=== PATIENT | female | born 1950 | race Caucasian/White ===

== ENCOUNTER → 2017-06-18 | Outpatient (CLI) | payer MEDICARE, OTHER ==
[~2017-06-18] MED LIST: ACIPHEX20 MG PO; ASPIRIN 81M81 MG/TA2 PO; CRESTOR5 MG PO; IMITREX 25MG TA25 MG PO; L-LYSINE1000 MG PO; MULTIPLE VITAMI1 CAP PO; NATURAL E400 IU PO; NATURAL MAGNES200 MG; OMEGA 31000 MG; OSTEO-BI-FLEX 21 TAB PO; PRINZIDE 12.5 M1 TAB; VITAMIN D31000 IU PO; ZYRTEC5 MG PO; [UNRECOGNIZED DRUG - OTHER] TD
== END ==
LOC: COL.RAD 08:09
DX: K21.9 Gastro-esophageal reflux disease without esophagitis (principal); K44.9 Diaphragmatic hernia without obstruction or gangrene

== ENCOUNTER → 2017-09-19 | Outpatient (CLI) | payer MEDICARE, OTHER | LOC: MC.RAD 11:37 | DX: Z12.31 Encounter for screening mammogram for malignant neoplasm of breast (principal) ==

== ENCOUNTER → 2018-06-13 | Outpatient (CLI) | payer MEDICARE, OTHER | LOC: COL.RAD 10:49 | DX: I73.9 Peripheral vascular disease, unspecified (principal) | CPT/HCPCS: Q9967 ==

== ENCOUNTER → 2018-09-20 | Outpatient (CLI) | payer MEDICARE, OTHER | LOC: MC.RAD 10:51 | DX: Z12.31 Encounter for screening mammogram for malignant neoplasm of breast (principal); C50.919 Malignant neoplasm of unspecified site of unspecified female breast; R92.1 Mammographic calcification found on diagnostic imaging of breast; Z98.82 Breast implant status; Z98.890 Other specified postprocedural states ==

== ENCOUNTER → 2018-09-25 | Outpatient (CLI) | payer MEDICARE, OTHER | LOC: MC.RAD 14:14 | DX: Z85.3 Personal history of malignant neoplasm of breast (principal) ==

== ENCOUNTER → 2019-10-02 | Outpatient (CLI) | payer MEDICARE, OTHER | LOC: MC.RAD 13:14 | DX: Z12.31 Encounter for screening mammogram for malignant neoplasm of breast (principal); Z98.82 Breast implant status; Z98.890 Other specified postprocedural states; Z92.3 Personal history of irradiation ==

== ENCOUNTER → 2020-10-04 | Outpatient (CLI) | payer MEDICARE, OTHER | LOC: MC.RAD 13:26 | DX: Z12.31 Encounter for screening mammogram for malignant neoplasm of breast (principal) ==

== ENCOUNTER → 2022-03-07 | Outpatient (CLI) | payer MEDICARE, OTHER | LOC: ZCOL.LAB 14:01 | DX: Z01.812 Encounter for preprocedural laboratory examination (principal); Z20.822 Contact with and (suspected) exposure to COVID-19 ==